=== PATIENT | female | born 1970 | race Caucasian/White ===

== ENCOUNTER → 2023-11-12 06:24 | Day surgery (SDC) | payer OTHER, SELFPAY | LOC: GI 06:24 | PROVIDERS: ATTENDING PHYSICIAN Internal Medicine | DX: Z12.11 Encounter for screening for malignant neoplasm of colon (principal); K64.9 Unspecified hemorrhoids; Q43.8 Other specified congenital malformations of intestine; Z86.010 Personal history of colon polyps | CPT/HCPCS: G0105 ==